=== PATIENT | female | born 1975 | race Caucasian/White ===

== ENCOUNTER 2024-02-16 13:57 | Outpatient (OUT) | payer OTHER, SELFPAY ==
--- NOTE | 2024-02-16 14:12 | XR_ITS ---
The [address] [address] Patient Name: HONEY SIERRA MRN: [id number] date: 1975 Sex: F Assigned Patient Location: [facility] Current Patient Location: RAD Accession/Order Number: [id number] Exam Date: 02/16/2024 14:20 Report Date: 02/16/2024 14:51 At the request of: ROSALBA MONAHAN Procedure: XR finger RT min 2V PROCEDURE: XR finger RT min 2V HISTORY: Crush Injury Right Index Finger COMPARISON: None. FINDINGS: BONES:Acute fracture of distal medial aspect of the tuft of the second distal phalanx with approximately 1 mm displacement. SOFT TISSUES:Soft tissue injury and swelling of the distal aspect of the second digit. EFFUSION:None visible. OTHER: Negative. XR/XR finger RT min 2V IMPRESSION: 1. Acute, mildly displaced tuft fracture of second distal phalanx. 2. Soft tissue injury of tip of second digit. Electronically authenticated by: JOSH SUN Date: 02/16/2024 14:51
== END 2024-02-16 13:58 | disposition home or self-care (01) ==
LOC: RAD 14:01
PROVIDERS: Visit Provider Nurse Practitioner Family
DX: S67.190A Crushing injury of right index finger, initial encounter (principal); S62.630A Displaced fracture of distal phalanx of right index finger, initial encounter for closed fracture
CPT/HCPCS: 73140

== ENCOUNTER 2024-03-13 13:20 | Outpatient (OUT) | payer OTHER, SELFPAY ==
--- NOTE | 2024-03-13 13:28 | XR_ITS ---
The [place] [id number] Patient Name: HONEY SIERRA MRN: [id number] date: 1975 Sex: F Assigned Patient Location: [facility] Current Patient Location: [facility] Accession/Order Number: [id number] Exam Date: 03/13/2024 13:35 Report Date: 03/13/2024 13:53 At the request of: ROSALBA MONAHAN Procedure: XR finger RT min 2V PROCEDURE: XR finger RT min 2V HISTORY: Crush Injury, Right Index Finger Fracture COMPARISON: XR finger right 02/16/2024 FINDINGS: BONES:Displaced fracture of the distal medial aspect of the tuft of the second distal phalanx. No appreciable osseous bridging of the fracture line. SOFT TISSUES:No visible soft tissue swelling. EFFUSION:None visible. OTHER: Negative. XR/XR finger RT min 2V IMPRESSION: 1. Stable displaced tuft fracture. No visible osseous bridging. Electronically authenticated by: JOSH SUN Date: 03/13/2024 13:53
== END 2024-03-13 13:21 | disposition home or self-care (01) ==
LOC: RAD 13:21
PROVIDERS: Visit Provider Nurse Practitioner Family
DX: S67.190A Crushing injury of right index finger, initial encounter (principal); S62.630D Displaced fracture of distal phalanx of right index finger, subsequent encounter for fracture with routine healing
CPT/HCPCS: 73140